=== PATIENT | female | born 1950 | race Caucasian/White ===

== ENCOUNTER 2024-11-07 10:04 | Outpatient (CLI) | payer MEDICARE, OTHER | END 2024-11-07 10:05 | disposition home or self-care (01) | LOC: CSHMAMMO 10:04 | PROVIDERS: ATTEND Family Medicine | DX: Z12.31 Encounter for screening mammogram for malignant neoplasm of breast (principal); Z80.3 Family history of malignant neoplasm of breast; Z85.3 Personal history of malignant neoplasm of breast; Z98.82 Breast implant status; Z90.11 Acquired absence of right breast and nipple | CPT/HCPCS: 77063; 77067 ==